=== PATIENT | female | born 1950 | race Caucasian/White ===

== ENCOUNTER 2021-09-12 10:55 | Inpatient (IN) | payer MEDICARE ==
[2021-09-12] MEDS ORDERED: Polyethylene Glycol 3350 Powder 17 GM Packet PO PRN (11:17)
[2021-09-12] MEDS ORDERED: Acetaminophen 325 MG Tab PO PRN (11:17)
[2021-09-12] MEDS ORDERED: oxyCODONE 5 MG Tab PO PRN (11:36)
[2021-09-12] MEDS: oxyCODONE 5 MG Tab PO PRN (15:05)
[2021-09-12] MEDS ORDERED: Bisacodyl 5 MG Tab PO PRN (16:09)
[2021-09-12] MEDS ORDERED: Calcium Carbonate 500 MG Tab.Chew PO PRN (16:09)
[2021-09-12] MEDS ORDERED: hydrOXYzine HCl 25 MG Tab PO PRN (16:09)
[2021-09-12] MEDS ORDERED: Ondansetron 4 MG/2 ML SDV IV PRN (16:09)
[2021-09-12] MEDS: Carvedilol 6.25 MG Tab PO SCH (17:50)
[2021-09-12] MEDS: metFORMIN 500 MG Tab PO SCH (17:51)
[2021-09-12] MEDS ORDERED: Non-Formulary Medication 1 Each (Ciclopirox [Penlac 8% Nail Lacquer] 6.6 ML Bottle) TOP SCH (21:00)
[2021-09-12] MEDS: Melatonin 3 MG Tab PO SCH (21:47)
[2021-09-13] MEDS: Carvedilol 6.25 MG Tab PO SCH ×2 (09:00→18:19)
[2021-09-13] MEDS ORDERED: Enoxaparin 30 MG/0.3 ML Syringe SUBCUT SCH (09:00)
[2021-09-13] MEDS: Torsemide 20 MG Tab PO SCH (09:03)
[2021-09-13] MEDS: metFORMIN 500 MG Tab PO SCH ×2 (09:04→18:19)
[2021-09-13] MEDS: Aspirin 81 MG Tab.EC PO SCH (09:04)
[2021-09-13] MEDS: glipiZIDE 5 MG Tab.ER PO SCH (09:04)
[2021-09-13] MEDS: Isosorbide Mononitrate 30 MG Tab.ER PO SCH (09:05)
[2021-09-13] MEDS: atorvaSTATin 10 MG Tab PO SCH (09:08)
[2021-09-13] MEDS: Spironolactone 25 MG Tab PO SCH (09:08)
[2021-09-13] MEDS: Enoxaparin 30 MG/0.3 ML Syringe SUBCUT SCH (09:08)
[2021-09-13] MEDS: oxyCODONE 5 MG Tab PO PRN ×3 (09:10→21:36)
[2021-09-13] MEDS ORDERED: Ondansetron 4 MG Tab.DIS PO PRN (10:34)
--- NOTE | 2021-09-13 10:36 | PCM.HP.2 ---
H&P History of Present Illness - General Date of Service: 09/13/21 Admit Problem/Dx: Admission Diagnosis/Problem Admission Diagnosis/Problem Weakness Right Hip Pain Score (Numeric/FACES): 6 Right Leg Pain Score (Numeric/FACES): 6 - Related Data Allergies/Adverse Reactions: Allergies Allergy/AdvReac Type Severity Reaction Status Date / Time No Known Allergies Allergy Verified 09/12/21 14:37 Home Medications: Home Meds Aspirin [Aspirin EC] 81 mg PO DAILY 09/12/21 [History] Calcium Carbonate [Tums] 1,000 mg PO ASDIRECTED PRN 09/12/21 [History] Ciclopirox [Penlac 8% Nail Lacquer] 1 applic TOP BID 09/12/21 [History] Clopidogrel [Plavix] 75 mg PO DAILY 09/12/21 [History] Enoxaparin Sodium [Lovenox] 30 mg SQ DAILY 09/12/21 [History] Ibuprofen [Motrin] 600 mg PO ASDIRECTED PRN 09/12/21 [History] Isosorbide Mononitrate [Isosorbide Mononitrate ER] 30 mg PO DAILY 09/12/21 [History] Melatonin 6 mg PO BEDTIME 09/12/21 [History] Ondansetron [Zofran] 4 mg IV Q4HR PRN 09/12/21 [History] Sennosides [Laxative] 25 mg PO BID PRN 09/12/21 [History] Sennosides/Docusate Sodium [Senna-S] 2 each PO BID PRN 09/12/21 [History] Spironolactone [Aldactone] 12.5 mg PO DAILY 09/12/21 [History] Torsemide 30 mg PO DAILY 09/12/21 [History] atorvaSTATin [Lipitor] 20 mg PO DAILY 09/12/21 [History] bisacodyL [Bisacodyl] 10 mg PO DAILY PRN 09/12/21 [History] carvediloL [Carvedilol] 9.375 mg PO BIDMEALS 09/12/21 [History] glipiZIDE [Glipizide ER] 20 mg PO DAILY 09/12/21 [History] hydrOXYzine pamoate [Hydroxyzine Pamoate] 25 mg PO Q6HR PRN 09/12/21 [History] metFORMIN [Glucophage] 1,000 mg PO BIDMEALS 09/12/21 [History] traMADol [Ultram] 50 mg PO Q6H PRN 09/12/21 [History] Past Medical History HEENT History: Reports: Cataract, Impaired Vision Cardiovascular History: Reports: Bypass, Heart Failure, Heart Murmur, High Cholesterol, Other (See Below) Other Cardiovascular History: EF 29% Respiratory History: Reports: None Gastrointestinal History: Reports: Chronic Constipation Genitourinary History: Reports: Chronic Renal Insuffiency Musculoskeletal History: Reports: Fracture, Other (See Below) Other Musculoskeletal History: right distal femur fracture Neurological History: Reports: None Endocrine/Metabolic History: Reports: Diabetes, Type II Hematologic History: Reports: Blood Transfusion(s) Dermatologic History: Reports: Eczema - Infectious Disease History Infectious Disease History: Reports: Chicken Pox, Influenza, Measles, Mumps, Rubella - Past Surgical History Head Surgeries/Procedures: Reports: None Cardiovascular Surgical History: Reports: Coronary Artery Bypass, Other (See Below) Other Cardiovascular Surgeries/Procedures: CABG x4 10/2020 Respiratory Surgical History: Reports: None GI Surgical History: Reports: None Endocrine Surgical History: Reports: None Neurological Surgical History: Reports: None Musculoskeletal Surgical History: Reports: ORIF Social & Family History - Family History Family Medical History: No Pertinent Family History - Tobacco Use Tobacco Use Status *Q: Former Tobacco User Used Tobacco, but Quit: Yes Month/Year Tobacco Last Used: 09/2020 - Caffeine Use Caffeine Use: Reports: Coffee, Soda, Tea - Recreational Drug Use Recreational Drug Use: No H&P Review of Systems - Review of Systems: Review Of Systems: See Below General: Reports: Weakness, Fatigue, Decreased Appetite. Denies: Fever, Chills HEENT: Reports: No Symptoms Pulmonary: Reports: Shortness of Breath (improved from prior). Denies: Wheezing, Cough Cardiovascular: Reports: Dyspnea on Exertion (improved from prior), Edema (improved from prior). Denies: Chest Pain Gastrointestinal: Reports: Decreased Appetite, Nausea. Denies: Abdominal Pain, Constipation, Diarrhea, Vomiting Genitourinary: Reports: No Symptoms Musculoskeletal: Reports: Leg Pain (right ) Skin: Reports: Bruising (scattered to upper extremities from lab draws and IVs during acute hospital stay), Wound (surgical incision to R distal femur s/p ORIF) Psychiatric: Reports: No Symptoms Neurological: Reports: No Symptoms Hematologic/Lymphatic: Reports: Anemia, Easy Bruising Immunologic: Reports: No Symptoms Exam - Exam Exam: See Below - Vital Signs Vital Signs: Last Vital Signs Temp 97.4 F 09/13/21 06:35 Pulse 68 09/13/21 09:00 Resp 20 09/13/21 06:35 BP 116/51 L 09/13/21 09:05 Pulse Ox 97 09/13/21 06:35 Weight: 143 lb 7 oz - Exam Quality Assessment: DVT Prophylaxis. No: Supplemental Oxygen General: Alert, Oriented, Cooperative. No: Mild Distress HEENT: Conjunctiva Clear, Mucosa Moist & [place] Neck: Supple, Trachea Midline, Carotid Bruit. No: +2 Carotid Pulse wo Bruit, JVD Lungs: Normal Respiratory Effort, Decreased Breath Sounds. No: Crackles, Rhonchi, Wheezing Cardiovascular: Regular Rate, Regular Rhythm, Systolic Murmur GI/Abdominal Exam: Normal Bowel Sounds, Soft, Non-Tender, No Distention (Female) Exam: Deferred Rectal (Female) Exam: Deferred Back Exam: Normal Inspection, Full Range of Motion Extremities: Normal Capillary Refill, Pedal Edema (+1 edema LLE, +2 RLE) Peripheral Pulses: 2+: Dorsalis Pedis (L), Dorsalis Pedis (R) Skin: Warm, Dry, Incision (R distal femur s/p ORIF; dressing clean, dry and intact) Neuro Extensive - Mental Status: Alert, Oriented x3, Normal Mood/Affect Psychiatric: Alert, Normal Affect, Normal Mood Sepsis Event Note - Evaluation Sepsis Screening Result: No Definite Risk - Focused Exam Vital Signs: Vital Signs Temp Pulse Pulse Resp BP BP Pulse Ox 09/13/21 09:05 116/51 L 09/13/21 09:00 68 116/51 L 09/13/21 06:35 97.4 F 66 20 119/59 L 97 Problem List Initiated/Reviewed/Updated: Yes Orders Last 24hrs: Active Orders 24 hr Category Date Time Status Patient Status [ADT] Routine ADT 09/12/21 11:17 Active Communication Order [RC] DAILY Care 09/12/21 13:21 Active Oxygen Therapy [RC] .PRN Care 09/12/21 11:17 Active Up With Assistance [RC] .PRN Care 09/12/21 11:17 Active VTE/DVT Education [RC] Tu@ Care 09/12/21 11:17 Active Vital Signs [RC] 07,19 Care 09/12/21 11:17 Active Consult to Case Management/Horse Race Starter [CONS] Cons 09/12/21 11:17 Active Routine OT Evaluation and Treatment [CONS] Routine Cons 09/12/21 11:17 Active PT Evaluation and Treatment [CONS] Routine Cons 09/12/21 11:17 Active Consistent Carbohydrate Diet [DIET] Diet 09/12/21 Dinner Active Heart Healthy Diet [DIET] Diet 09/12/21 Dinner Active Acetaminophen [TylenoL] Med 09/12/21 11:17 Active 650 mg PO Q4H PRN Aspirin [Halfprin] Med 09/13/21 09:00 Active 81 mg PO DAILY Calcium Carbonate [Tums] Med 09/12/21 16:09 Active 1,000 mg PO Q6H PRN Ciclopirox [Penlac 8% Nail Lacquer] Med 09/12/21 21:00 Pending 1 applic TOP BID Clopidogrel [Plavix] Med 09/14/21 09:00 Active 75 mg PO DAILY Docusate Sodium/Sennosides [Senna Plus] Med 09/12/21 16:09 Active 2 tab PO BID PRN Enoxaparin [Lovenox] Med 09/13/21 09:00 Active 30 mg SUBCUT DAILY Isosorbide Mononitrate [Imdur] Med 09/13/21 09:00 Active 30 mg PO DAILY Melatonin Med 09/12/21 21:00 Active 6 mg PO BEDTIME Ondansetron [Zofran ODT] Med 09/13/21 10:34 Ordered 4 mg PO Q6H PRN Spironolactone [Aldactone] Med 09/13/21 09:00 Active 12.5 mg PO DAILY Torsemide [Demadex] Med 09/13/21 09:00 Active 30 mg PO DAILY atorvaSTATin [Lipitor] Med 09/13/21 09:00 Active 20 mg PO DAILY bisacodyL [Dulcolax] Med 09/12/21 16:09 Active 10 mg PO DAILY PRN carvediloL [Coreg] Med 09/12/21 18:00 Active 9.375 mg PO BIDMEALS glipiZIDE [Glucotrol XL] Med 09/13/21 09:00 Active 20 mg PO DAILY hydrOXYzine HCL [Atarax] Med 09/12/21 16:09 Active 25 mg PO Q6H PRN metFORMIN [Glucophage] Med 09/12/21 18:00 Active 1,000 mg PO BIDMEALS oxyCODONE Med 09/12/21 11:36 Active 2.5 mg PO Q4H PRN oxyCODONE Med 09/12/21 11:40 Active 5 mg PO Q4H PRN polyethylene glycoL 3350 [MiraLAX] Med 09/12/21 11:17 Active 17 gm PO DAILY PRN Resuscitation Status Routine Resus Stat 09/12/21 11:17 Ordered Medication Orders Acetaminophen (Acetaminophen 325 Mg Tab) 650 mg PO Q4H PRN PRN Reason: Pain (Mild 1-3)/fever Aspirin (Aspirin 81 Mg Tab.Ec) 81 mg PO DAILY [facility] Last Admin: 09/13/21 09:04 Dose: 81 mg Documented by: DELMAR Atorvastatin Calcium (Atorvastatin 10 Mg Tab) 20 mg PO DAILY [facility] Last Admin: 09/13/21 09:08 Dose: 20 mg Documented by: DELMAR Bisacodyl (Bisacodyl 5 Mg Tab) 10 mg PO DAILY PRN PRN Reason: Constipation Calcium Carbonate/Glycine (Calcium Carbonate 500 Mg Tab.Chew) 1,000 mg PO Q6H PRN PRN Reason: Heartburn Carvedilol (Carvedilol 6.25 Mg Tab) 9.375 mg PO BIDMEALS [facility] Last Admin: 09/13/21 09:00 Dose: 9.375 mg Documented by: Admin: 09/12/21 17:50 Dose: 9.375 mg Documented by: RUDY Clopidogrel Bisulfate (Clopidogrel 75 Mg Tab) 75 mg PO DAILY [facility] Enoxaparin Sodium (Enoxaparin 30 Mg/0.3 Ml Syringe) 30 mg SUBCUT DAILY [facility] Stop: 10/05/21 09:01 Last Admin: 09/13/21 09:08 Dose: 30 mg Documented by: DELMAR Glipizide (Glipizide 5 Mg Tab.Er) 20 mg PO DAILY [facility] Last Admin: 09/13/21 09:04 Dose: 20 mg Documented by: DELMAR Hydroxyzine HCl (Hydroxyzine Hcl 25 Mg Tab) 25 mg PO Q6H PRN PRN Reason: Anxiety Isosorbide Mononitrate (Isosorbide Mononitrate 30 Mg Tab.Er) 30 mg PO DAILY [facility] Last Admin: 09/13/21 09:05 Dose: 30 mg Documented by: DELMAR Melatonin (Melatonin 3 Mg Tab) 6 mg PO BEDTIME [facility] Last Admin: 09/12/21 21:47 Dose: 6 mg Documented by: DYLON Metformin HCl (Metformin 500 Mg Tab) 1,000 mg PO BIDMEALS [facility] Last Admin: 09/13/21 09:04 Dose: 1,000 mg Documented by: Admin: 09/12/21 17:51 Dose: 1,000 mg Documented by: RUDY Non-Formulary Medication (Ciclopirox [Penlac 8% Nail Lacquer]) 1 applic TOP BID [facility] Oxycodone HCl (Oxycodone 5 Mg Tab) 2.5 mg PO Q4H PRN PRN Reason: Pain (moderate 4-6) Oxycodone HCl (Oxycodone 5 Mg Tab) 5 mg PO Q4H PRN PRN Reason: Pain (severe 7-10) Last Admin: 09/13/21 09:10 Dose: 5 mg Documented by: Admin: 09/12/21 15:05 Dose: 5 mg Documented by: IVAN Polyethylene Glycol (Polyethylene Glycol 3350 Powder 17 Gm Packet) 17 gm PO DAILY PRN PRN Reason: Constipation Senna/Docusate Sodium (Docusate Sodium/Sennosides 50-8.6 Mg Tab) 2 tab PO BID PRN PRN Reason: Constipation Spironolactone (Spironolactone 25 Mg Tab) 12.5 mg PO DAILY [facility] Last Admin: 09/13/21 09:08 Dose: 12.5 mg Documented by: DELMAR Torsemide (Torsemide 20 Mg Tab) 30 mg PO DAILY [facility] Last Admin: 09/13/21 09:03 Dose: 30 mg Documented by: DELMAR Assessment/Plan Comment:: HPI summary: Cha is a 71yF patient who experienced a fall on the snow covered ice on 09/03/21 at her home in [place], [place]. Patient presented to the ER at [facility] and was found to have a communited fracture of the right distal femur and subsequently transferred to [facility] in [place] for orthopedic consultation and surgical repair. Patient has PHM significant for HFrEF with EF of 29%, aortic stenosis, four vessel CABG in October,, type 2 DM, and CKD stage III. Acute Hospital course: Patient was then transferred to [facility] for orthopedic consultation and surgical repair of her femur fx. Cardiology was consulted during her acute hospital stay due to known HFrEF, aortic stenosis and recent CABG this past October. Medications were adjusted by cardiology to include: ASA 81mg PO daily, lipitor 20mg PO daily, coreg 9.375mg PO BID, Imdur SR 30mg PO daily, Torsemide 20mg PO daily, plavix 75mg PO daily. Repeat Echo indicated an EF of 40% and moderate to severe aortic stenosis. Patient had ORIF of the R distal femur s/p fall resulting in fx on 09/06/21. During acute hospitalization, patient developed hypotension as well as congestive hepatopathy due to IV fluids in the presence of HFrEF and aortic stenosis. Torsemide was held due to hypotension for a few days which is suspected to have contributed to patient's fluid overload. Patient subsequently developed pulmonary edema as well as increased peripheral edema of the bilateral lower extremities. Liver enzymes increased and BNP significantly above baseline. Patient's torsemide was restarted which resulted in diuresis and overall improvement in clinical status. Patient was hospitalized at [facility] from 09/03/21 to 09/12/21 and discharged to swing bed at [facility] for deconditioning, generalized weakness, s/p R distal femur fx with surgical repair for additional PT and OT. Labs day of discharge were as follows: WBC 4.8, Hgb 9.1, Plt 210. Glu 118, Na 133, K 3.6, BUN 50, Creatinine 1.60, GFR 32, Alk phos 392, AST 116, ALT 126, Bili total 2.7, Mg 1.9. BNP 6259. Swing bed course: 09/13/21: Patient seen this morning on rounds after admission to swing bed yesterday afternoon from [facility]. Patient reports her pain is improved from prior and she feels good being able to move around. She reports nausea today with relief from PO zofran. Breathing and lower extremity swelling improved from prior as patient was fluid overloaded during acute hospital stay which has since improved since diuretics were restarted. Appetite has been somewhat decreased, bowels are moving. Lung sounds clear, diminished. HR regular with harsh murmur noted. Carotid bruit present bilaterally. Patient due to have TAVR in near future. Bowel sounds present, abdomen soft, non-tender. Swing bed problems and plan: # Generalized weakness # Deconditioning # Closed fracture of R distal femur (09/03/21) # s/p ORIF R distal femur (09/06/21) - PT eval and tx - OT eval and tx - web services manager consult for discharge planning due to possible need for home health vs SNF upon discharge depending on progress with therapy - Partial weight bearing status RLE - Continue tylenol 1000mg PO TID PRN mild pain - Continue oxy IR 2.5mg PO Q4H PRN moderate pain - Continue oxy IR 5mg PO Q4H PRN severe pain - Continue lovenox 30mg subq for DVT ppx until 10/05/21 per ortho discharge instructions - Continue daily dressing changes and monitor for s/s of infection (staple removal to be addressed at follow-up visit on 09/21/21) - Senna + PO BID PRN constipation - Miralax 17g PO daily PRN constipation - Dulcolax suppository PRN constipation - Zofran 4mg ODT Q6H PRN nausea Chronic, stable conditions: # CAD - continue ASA 81mg PO daily, imdur 30mg PO daily # HFrEF - EF 29% - Continue coreg 9.375mg PO BID, continue increased dose of torsemide 30mg PO daily due to fluid overload in [place] - was on 20mg PO daily in [place]. BNP day of discharge 6259. # Moderate to severe aortic stenosis - patient to have TAVR in near future # CABG (10/2020) - four vessel - Continue plavix 75mg PO daily (restarted post-op day 6) # HTN - continue spironolactone 12.5mg PO daily # DM Type II - Last Hgb A1C on 06/13/21 was 6.5% - Continue glipizide 20mg PO daily, metformin 1000mg PO BID # CKD IIIa - BUN 50, Creatinine 1.60, GFR 32 prior to discharge 09/12/21 # Hyperlipidemia - continue atorvastatin 20mg PO HS daily # Anemia, acute on chronic; Hgb was stable upon discharge 9.1 (patient received 2 units PRBC during acute hospital stay) - consider iron studies as RDW 57% and PO iron supplementation # Hyperthyroidism - TSH < 0.01 on 07/17/21 # GERD - Continue Tums 1000mg PO Q6H PRN heartburn # Atopic dermatitis Hospitalization details: # FEN: Oral fluids, electrolytes WNL per labs upon discharge from acute hospital, heart healthy/constant carb diet # PPX: Patient on lovenox for four weeks post-op, on plavix 75mg PO daily s/p CABG # Code status: FULL CODE # Emergency contact: SisterTiffanie [phone] - left a voicemail for sister to contact provider for status update per patient request # Disposition: Patient admitted to swing bed status for strengthening with PT and OT services. web services manager consult is in place to assist with discharge disposition including home health services vs SNF depending on how patient progresses with therapy after her R distal femur fx. - Cardiology in [place] to determine how long to continue plavix s/p CABG in October, - Patient to follow-up with ortho [facility] in 2 weeks on 09/21/21 at 8:[address] Felton in 6 weeks on 10/19/21 at 10:00 - Patient has scheduled endocrinology appointment on 10/03/21 at 12:50 for hyperthyroidism follow-up
[2021-09-13] MEDS: Melatonin 3 MG Tab PO SCH (21:36)
[2021-09-14] MEDS: Torsemide 20 MG Tab PO SCH (08:21)
[2021-09-14] MEDS: Carvedilol 6.25 MG Tab PO SCH ×2 (08:22→18:03)
[2021-09-14] MEDS: Clopidogrel 75 MG Tab PO SCH (08:22)
[2021-09-14] MEDS: metFORMIN 500 MG Tab PO SCH ×2 (08:23→18:03)
[2021-09-14] MEDS: glipiZIDE 5 MG Tab.ER PO SCH (08:23)
[2021-09-14] MEDS: Enoxaparin 30 MG/0.3 ML Syringe SUBCUT SCH (08:23)
[2021-09-14] MEDS: atorvaSTATin 10 MG Tab PO SCH (08:23)
[2021-09-14] MEDS: Aspirin 81 MG Tab.EC PO SCH (08:23)
[2021-09-14] MEDS: Isosorbide Mononitrate 30 MG Tab.ER PO SCH (08:24)
[2021-09-14] MEDS: Spironolactone 25 MG Tab PO SCH (08:24)
[2021-09-14] MEDS: oxyCODONE 5 MG Tab PO PRN ×2 (08:48→14:19)
[2021-09-14] MEDS: Melatonin 3 MG Tab PO SCH (20:20)
[2021-09-15] MEDS: oxyCODONE 5 MG Tab PO PRN ×4 (04:21→21:48)
[2021-09-15] MEDS: Carvedilol 6.25 MG Tab PO SCH ×2 (08:45→17:36)
[2021-09-15] MEDS: Isosorbide Mononitrate 30 MG Tab.ER PO SCH (08:45)
[2021-09-15] MEDS: Torsemide 20 MG Tab PO SCH (08:45)
[2021-09-15] MEDS: Clopidogrel 75 MG Tab PO SCH (08:45)
[2021-09-15] MEDS: Aspirin 81 MG Tab.EC PO SCH (08:45)
[2021-09-15] MEDS: Enoxaparin 30 MG/0.3 ML Syringe SUBCUT SCH (08:45)
[2021-09-15] MEDS: Spironolactone 25 MG Tab PO SCH (08:45)
[2021-09-15] MEDS: atorvaSTATin 10 MG Tab PO SCH (08:45)
[2021-09-15] MEDS: metFORMIN 500 MG Tab PO SCH ×2 (08:46→17:36)
[2021-09-15] MEDS: glipiZIDE 5 MG Tab.ER PO SCH (08:46)
[2021-09-15] MEDS: Melatonin 3 MG Tab PO SCH (21:48)
[2021-09-16] MEDS: metFORMIN 500 MG Tab PO SCH ×2 (09:18→19:38)
[2021-09-16] MEDS: atorvaSTATin 10 MG Tab PO SCH (09:19)
[2021-09-16] MEDS: Torsemide 20 MG Tab PO SCH (09:19)
[2021-09-16] MEDS: Aspirin 81 MG Tab.EC PO SCH (09:19)
[2021-09-16] MEDS: Isosorbide Mononitrate 30 MG Tab.ER PO SCH (09:20)
[2021-09-16] MEDS: oxyCODONE 5 MG Tab PO PRN ×2 (09:20→14:47)
[2021-09-16] MEDS: Clopidogrel 75 MG Tab PO SCH (09:21)
[2021-09-16] MEDS: glipiZIDE 5 MG Tab.ER PO SCH (09:21)
[2021-09-16] MEDS: Carvedilol 6.25 MG Tab PO SCH ×2 (09:21→19:36)
[2021-09-16] MEDS: Spironolactone 25 MG Tab PO SCH (09:22)
[2021-09-16] MEDS: Enoxaparin 30 MG/0.3 ML Syringe SUBCUT SCH (09:25)
[2021-09-16] MEDS: Melatonin 3 MG Tab PO SCH (21:01)
[2021-09-17] MEDS: oxyCODONE 5 MG Tab PO PRN ×3 (08:18→20:58)
[2021-09-17] MEDS: Spironolactone 25 MG Tab PO SCH (08:19)
[2021-09-17] MEDS: glipiZIDE 5 MG Tab.ER PO SCH (08:19)
[2021-09-17] MEDS: metFORMIN 500 MG Tab PO SCH ×2 (08:20→17:49)
[2021-09-17] MEDS: atorvaSTATin 10 MG Tab PO SCH (08:20)
[2021-09-17] MEDS: Clopidogrel 75 MG Tab PO SCH (08:20)
[2021-09-17] MEDS: Carvedilol 6.25 MG Tab PO SCH ×2 (08:21→17:56)
[2021-09-17] MEDS: Isosorbide Mononitrate 30 MG Tab.ER PO SCH (08:21)
[2021-09-17] MEDS: Aspirin 81 MG Tab.EC PO SCH (08:22)
[2021-09-17] MEDS: Torsemide 20 MG Tab PO SCH (08:22)
[2021-09-17] MEDS: Enoxaparin 30 MG/0.3 ML Syringe SUBCUT SCH (08:22)
[2021-09-17] MEDS: Melatonin 3 MG Tab PO SCH (20:58)
[2021-09-18] MEDS: Spironolactone 25 MG Tab PO SCH (09:14)
[2021-09-18] MEDS: glipiZIDE 5 MG Tab.ER PO SCH (09:15)
[2021-09-18] MEDS: Carvedilol 6.25 MG Tab PO SCH ×2 (09:16→18:01)
[2021-09-18] MEDS: metFORMIN 500 MG Tab PO SCH ×2 (09:16→18:00)
[2021-09-18] MEDS: Torsemide 20 MG Tab PO SCH (09:17)
[2021-09-18] MEDS: Isosorbide Mononitrate 30 MG Tab.ER PO SCH (09:17)
[2021-09-18] MEDS: Aspirin 81 MG Tab.EC PO SCH (09:18)
[2021-09-18] MEDS: atorvaSTATin 10 MG Tab PO SCH (09:18)
[2021-09-18] MEDS: Clopidogrel 75 MG Tab PO SCH (09:18)
[2021-09-18] MEDS: Enoxaparin 30 MG/0.3 ML Syringe SUBCUT SCH (09:20)
[2021-09-18] MEDS: oxyCODONE 5 MG Tab PO PRN ×2 (10:21→15:17)
--- NOTE | 2021-09-18 10:50 | PCM.SN.2 ---
- Free Text/Narrative Note: S: Received notification that patient had fallen in room. Was asked to stop in and look at her. Patient reports no pain or injury. She states she landed on her buttocks. No LOC, light headed, or chest pain. Patient reports she hit her wrist but has no concerns and can move it without difficulty. Nursing reports that patient has upcoming appointment for staple removal and repeat xray of femur on 09/21/2021 in [place]. Patient reports she does not have anyone who can take her. O: Patient has full ROM of left wrist. A: Patient reports no injury and has no concerns. No concerns noted in visiting with her. Exam not indicated. P: Nursing will continue to monitory patient. Message sent to scheduling staff that provider who rounds on 09/21/2021 will see patient, remove kirstin if indicated and repeat x-ray.
[2021-09-18] MEDS: Melatonin 3 MG Tab PO SCH (20:36)
[2021-09-19] MEDS: oxyCODONE 5 MG Tab PO PRN ×4 (05:40→21:30)
[2021-09-19] MEDS: metFORMIN 500 MG Tab PO SCH ×2 (09:49→18:03)
[2021-09-19] MEDS: glipiZIDE 5 MG Tab.ER PO SCH (09:52)
[2021-09-19] MEDS: Aspirin 81 MG Tab.EC PO SCH (09:52)
[2021-09-19] MEDS: Isosorbide Mononitrate 30 MG Tab.ER PO SCH (09:53)
[2021-09-19] MEDS: Torsemide 20 MG Tab PO SCH (09:54)
[2021-09-19] MEDS: Clopidogrel 75 MG Tab PO SCH (09:54)
[2021-09-19] MEDS: Spironolactone 25 MG Tab PO SCH (09:55)
[2021-09-19] MEDS: Carvedilol 6.25 MG Tab PO SCH ×2 (09:56→18:02)
[2021-09-19] MEDS: atorvaSTATin 10 MG Tab PO SCH (09:57)
[2021-09-19] MEDS: Enoxaparin 30 MG/0.3 ML Syringe SUBCUT SCH (10:00)
[2021-09-19] MEDS: Melatonin 3 MG Tab PO SCH (21:29)
[2021-09-20] MEDS: metFORMIN 500 MG Tab PO SCH ×2 (08:19→17:38)
[2021-09-20] MEDS: Torsemide 20 MG Tab PO SCH (08:19)
[2021-09-20] MEDS: Spironolactone 25 MG Tab PO SCH (08:20)
[2021-09-20] MEDS: glipiZIDE 5 MG Tab.ER PO SCH (08:20)
[2021-09-20] MEDS: atorvaSTATin 10 MG Tab PO SCH (08:20)
[2021-09-20] MEDS: Aspirin 81 MG Tab.EC PO SCH (08:21)
[2021-09-20] MEDS: Enoxaparin 30 MG/0.3 ML Syringe SUBCUT SCH (08:21)
[2021-09-20] MEDS: Clopidogrel 75 MG Tab PO SCH (08:21)
[2021-09-20] MEDS: Carvedilol 6.25 MG Tab PO SCH ×2 (08:26→17:46)
[2021-09-20] MEDS: Isosorbide Mononitrate 30 MG Tab.ER PO SCH (08:27)
[2021-09-20] MEDS: oxyCODONE 5 MG Tab PO PRN ×3 (08:29→20:52)
[2021-09-20] MEDS: Melatonin 3 MG Tab PO SCH (20:52)
[2021-09-21] MEDS: glipiZIDE 5 MG Tab.ER PO SCH (08:21)
[2021-09-21] MEDS: atorvaSTATin 10 MG Tab PO SCH (08:22)
[2021-09-21] MEDS: Torsemide 20 MG Tab PO SCH (08:22)
[2021-09-21] MEDS: Aspirin 81 MG Tab.EC PO SCH (08:22)
[2021-09-21] MEDS: metFORMIN 500 MG Tab PO SCH ×2 (08:22→17:01)
[2021-09-21] MEDS: Spironolactone 25 MG Tab PO SCH (08:23)
[2021-09-21] MEDS: Clopidogrel 75 MG Tab PO SCH (08:23)
[2021-09-21] MEDS: Enoxaparin 30 MG/0.3 ML Syringe SUBCUT SCH (08:23)
[2021-09-21] MEDS: Carvedilol 6.25 MG Tab PO SCH ×2 (08:34→17:00)
[2021-09-21] MEDS: Isosorbide Mononitrate 30 MG Tab.ER PO SCH (08:34)
[2021-09-21] MEDS: oxyCODONE 5 MG Tab PO PRN ×2 (11:07→17:01)
[2021-09-21] MEDS: Melatonin 3 MG Tab PO SCH (21:48)
[2021-09-22] MEDS: Spironolactone 25 MG Tab PO SCH (08:43)
[2021-09-22] MEDS: Aspirin 81 MG Tab.EC PO SCH (08:43)
[2021-09-22] MEDS: Isosorbide Mononitrate 30 MG Tab.ER PO SCH (08:43)
[2021-09-22] MEDS: Clopidogrel 75 MG Tab PO SCH (08:44)
[2021-09-22] MEDS: atorvaSTATin 10 MG Tab PO SCH (08:44)
[2021-09-22] MEDS: Torsemide 20 MG Tab PO SCH (08:44)
[2021-09-22] MEDS: glipiZIDE 5 MG Tab.ER PO SCH (08:44)
[2021-09-22] MEDS: Carvedilol 6.25 MG Tab PO SCH ×2 (08:44→18:29)
[2021-09-22] MEDS: metFORMIN 500 MG Tab PO SCH ×2 (08:44→18:29)
[2021-09-22] MEDS: Enoxaparin 30 MG/0.3 ML Syringe SUBCUT SCH (08:46)
[2021-09-22] MEDS: oxyCODONE 5 MG Tab PO PRN (12:21)
[2021-09-22] MEDS ORDERED: oxyCODONE 5 MG Tab PO PRN (13:09)
[2021-09-22] MEDS: Acetaminophen 650 MG Tab.ER PO SCH ×2 (14:37→20:50)
[2021-09-22] MEDS: Melatonin 3 MG Tab PO SCH (20:50)
[2021-09-23] MEDS: Isosorbide Mononitrate 30 MG Tab.ER PO SCH (08:43)
[2021-09-23] MEDS: Enoxaparin 30 MG/0.3 ML Syringe SUBCUT SCH (08:43)
[2021-09-23] MEDS: Clopidogrel 75 MG Tab PO SCH (08:43)
[2021-09-23] MEDS: atorvaSTATin 10 MG Tab PO SCH (08:44)
[2021-09-23] MEDS: Acetaminophen 650 MG Tab.ER PO SCH ×3 (08:44→20:42)
[2021-09-23] MEDS: metFORMIN 500 MG Tab PO SCH ×2 (08:44→18:06)
[2021-09-23] MEDS: glipiZIDE 5 MG Tab.ER PO SCH (08:46)
[2021-09-23] MEDS: Spironolactone 25 MG Tab PO SCH (08:48)
[2021-09-23] MEDS: Carvedilol 6.25 MG Tab PO SCH ×2 (08:49→18:05)
[2021-09-23] MEDS: Torsemide 20 MG Tab PO SCH (08:49)
[2021-09-23] MEDS: Aspirin 81 MG Tab.EC PO SCH (08:49)
--- NOTE | 2021-09-23 11:44 | PCM.SN.2 ---
- Free Text/Narrative Note: Patient remains in swing bed status for rehab services with goal to return home independently with likely home health services. There have been noted staff concerns regarding patients motivation and willingness to participate in her care. Yesterday patient refused to reposition, sit in the chair, or ambulate in the halls in the morning. She continued to refuse getting up to ambulate throughout the day. Discussion had with patient today regarding goals and plan of care. Patient feels she is overall improving. She reports pain 5/10 which is worse with ambulation. Patients Medicare coverage will only pay through next week and then patient would become out of pocket payment per day for her continued care. Discussed with patient that it is important that she becomes more engaged in her daily cares and rehabilitation to ensure she is medically optimized to return home. She denies any concerns of anxiety. She does report feeling a little down but relates this is situational. She states she is "bored" but does not have any particular activities that may appease her. Nonetheless this may help motivate patient to get her optimized for discharge to home. Goals/plan discussed with patient today: - Patient started on scheduled Tylenol TID. Dose reduction on Oxycodone with eventual plan to discontinue oxycodone altogether. - Patient to be up in the chair for meals. - Patient to be ambulating in the bruner and around the room (with assistance) - Continue PT - Continue to evaluate readiness for discharge
[2021-09-23] MEDS: Melatonin 3 MG Tab PO SCH (20:42)
[2021-09-24] MEDS: glipiZIDE 5 MG Tab.ER PO SCH (08:22)
[2021-09-24] MEDS: Isosorbide Mononitrate 30 MG Tab.ER PO SCH (08:23)
[2021-09-24] MEDS: Clopidogrel 75 MG Tab PO SCH (08:23)
[2021-09-24] MEDS: Torsemide 20 MG Tab PO SCH (08:25)
[2021-09-24] MEDS: Aspirin 81 MG Tab.EC PO SCH (08:25)
[2021-09-24] MEDS: Carvedilol 6.25 MG Tab PO SCH ×2 (08:25→17:53)
[2021-09-24] MEDS: atorvaSTATin 10 MG Tab PO SCH (08:25)
[2021-09-24] MEDS: Spironolactone 25 MG Tab PO SCH (08:25)
[2021-09-24] MEDS: Acetaminophen 650 MG Tab.ER PO SCH ×3 (08:26→20:24)
[2021-09-24] MEDS: metFORMIN 500 MG Tab PO SCH ×2 (08:26→17:53)
[2021-09-24] MEDS: Enoxaparin 30 MG/0.3 ML Syringe SUBCUT SCH (08:26)
[2021-09-24] MEDS: Melatonin 3 MG Tab PO SCH (20:24)
[2021-09-25] MEDS: Carvedilol 6.25 MG Tab PO SCH ×2 (08:21→17:34)
[2021-09-25] MEDS: Acetaminophen 650 MG Tab.ER PO SCH ×3 (08:22→21:00)
[2021-09-25] MEDS: metFORMIN 500 MG Tab PO SCH ×2 (08:23→17:34)
[2021-09-25] MEDS: glipiZIDE 5 MG Tab.ER PO SCH (08:25)
[2021-09-25] MEDS: Aspirin 81 MG Tab.EC PO SCH (08:25)
[2021-09-25] MEDS: atorvaSTATin 10 MG Tab PO SCH (08:26)
[2021-09-25] MEDS: Isosorbide Mononitrate 30 MG Tab.ER PO SCH (08:27)
[2021-09-25] MEDS: Clopidogrel 75 MG Tab PO SCH (08:27)
[2021-09-25] MEDS: Spironolactone 25 MG Tab PO SCH (08:28)
[2021-09-25] MEDS: Torsemide 20 MG Tab PO SCH (08:28)
[2021-09-25] MEDS: Enoxaparin 30 MG/0.3 ML Syringe SUBCUT SCH (08:30)
[2021-09-25] MEDS: oxyCODONE 5 MG Tab PO PRN (10:27)
[2021-09-25] MEDS: Melatonin 3 MG Tab PO SCH (21:00)
[2021-09-26] MEDS: metFORMIN 500 MG Tab PO SCH ×2 (07:46→18:06)
[2021-09-26] MEDS: Carvedilol 6.25 MG Tab PO SCH ×2 (07:46→18:05)
[2021-09-26] MEDS: Clopidogrel 75 MG Tab PO SCH (09:53)
[2021-09-26] MEDS: atorvaSTATin 10 MG Tab PO SCH (09:53)
[2021-09-26] MEDS: Enoxaparin 30 MG/0.3 ML Syringe SUBCUT SCH (09:53)
[2021-09-26] MEDS: Acetaminophen 650 MG Tab.ER PO SCH ×3 (09:53→20:34)
[2021-09-26] MEDS: glipiZIDE 5 MG Tab.ER PO SCH (09:53)
[2021-09-26] MEDS: Spironolactone 25 MG Tab PO SCH (09:54)
[2021-09-26] MEDS: Aspirin 81 MG Tab.EC PO SCH (09:54)
[2021-09-26] MEDS: Torsemide 20 MG Tab PO SCH (09:55)
[2021-09-26] MEDS: Isosorbide Mononitrate 30 MG Tab.ER PO SCH (09:55)
--- NOTE | 2021-09-26 10:37 | PT ---
PATIENT NAME: SHERRELL WOODSON MEDICAL RECORD NUMBER: : [id number] DATE: 09/13/2021 ONSET DATE: Date of injury: 09/03/2021 DATE OF EVALUATION: 09/13/2021 DIAGNOSIS: Status post open reduction and internal fixation distal femur fracture, right lower extremity weakness. SUBJECTIVE: The patient sustained injury to her right femur after a slip and fall on the ice on the outside of her home in [place]. The patient presented to the ED in [place] at which time it was determined she had a comminuted fracture of the distal femur. The patient agreed to be transferred to [place] for surgical repair of the injury with communications specialist. Currently, the patient is in swing bed status with a goal of returning to home independently. She says she would be receptive to home health if it is deemed necessary. She tells me that she has 3 stairs to accommodate to get into and out of her home with everything else on 1 level otherwise. She has 1 handrail currently that is on the left when going upstairs. The patient currently rates her pain as a 9/10. OBJECTIVE: TREATMENT TIME: Time in 1500. Time out 1530. TREATMENT: Consisted of physical therapy initial evaluation, low complex, and 15 minutes of therapeutic exercises with exercises consisting of supine bed exercises of heel slides, quad sets, hamstring sets, short arc quads and ankle pumps x20 each. OBSERVATION: The patient is supine in bed. Her incision sites appear to be healing normally and free of infection. There is moderate amount of swelling within the surgical region. PAIN: The patient rates pain as a 9/10. PALPATION: The patient is exquisitely tender palpating the surgical site in its entirety. RANGE OF MOTION: Active range of motion of right knee is 12 to 45 degrees. Passive range of motion equals that of active range of motion with patient intolerance due to pain. Passive range of motion of the right hip does appear within functional limits grossly. MANUAL MUSCLE TEST: Grade 2/5 in right knee flexion and extension and grade 3/5 in all planes of the right hip. SPECIAL TESTS: Negative. NEUROLOGIC FINDINGS: Appear intact and normal grossly. ASSESSMENT: Impression: The patient will benefit from a 10 to 20 day swing bed stay to improve strength and functionality. The patient does tolerate treatment fairly well despite being in significant pain. GOALS: Please refer to plan of care. PLAN: The patient will be seen in swing bed status 5 days per week until goals are met for discharge to home with potential for the need of home health.
[2021-09-26] MEDS ORDERED: Ondansetron 4 MG/2 ML SDV IM PRN (11:53)
[2021-09-26] MEDS ORDERED: Loperamide 2 MG Cap PO PRN (11:54)
[2021-09-26] MEDS: oxyCODONE 5 MG Tab PO PRN (13:41)
[2021-09-26] MEDS: Melatonin 3 MG Tab PO SCH (20:34)
[2021-09-27] MEDS: Carvedilol 6.25 MG Tab PO SCH ×2 (07:54→17:05)
[2021-09-27] MEDS: metFORMIN 500 MG Tab PO SCH ×2 (07:54→17:05)
[2021-09-27] MEDS: Acetaminophen 650 MG Tab.ER PO SCH ×3 (08:04→20:39)
[2021-09-27] MEDS: Spironolactone 25 MG Tab PO SCH (08:05)
[2021-09-27] MEDS: glipiZIDE 5 MG Tab.ER PO SCH (08:05)
[2021-09-27] MEDS: Aspirin 81 MG Tab.EC PO SCH (08:05)
[2021-09-27] MEDS: Isosorbide Mononitrate 30 MG Tab.ER PO SCH (08:05)
[2021-09-27] MEDS: Torsemide 20 MG Tab PO SCH (08:05)
[2021-09-27] MEDS: Clopidogrel 75 MG Tab PO SCH (08:05)
[2021-09-27] MEDS: atorvaSTATin 10 MG Tab PO SCH (08:05)
[2021-09-27] MEDS: Enoxaparin 30 MG/0.3 ML Syringe SUBCUT SCH (08:06)
[2021-09-27] MEDS: Melatonin 3 MG Tab PO SCH (20:39)
[2021-09-28] MEDS: Acetaminophen 650 MG Tab.ER PO SCH ×2 (08:07→13:16)
[2021-09-28] MEDS: Clopidogrel 75 MG Tab PO SCH (08:07)
[2021-09-28] MEDS: metFORMIN 500 MG Tab PO SCH (08:07)
[2021-09-28] MEDS: Torsemide 20 MG Tab PO SCH (08:07)
[2021-09-28] MEDS: Carvedilol 6.25 MG Tab PO SCH (08:08)
[2021-09-28] MEDS: Spironolactone 25 MG Tab PO SCH (08:08)
[2021-09-28] MEDS: glipiZIDE 5 MG Tab.ER PO SCH (08:08)
[2021-09-28] MEDS: Isosorbide Mononitrate 30 MG Tab.ER PO SCH (08:09)
[2021-09-28] MEDS: Aspirin 81 MG Tab.EC PO SCH (08:09)
[2021-09-28] MEDS: Enoxaparin 30 MG/0.3 ML Syringe SUBCUT SCH (08:09)
[2021-09-28] MEDS: atorvaSTATin 10 MG Tab PO SCH (08:09)
[2021-09-28 10:02] LABS: ANION GAP 15.7 mmol/L (5-15)
--- NOTE | 2021-09-28 10:19 | CR ---
[id number] RAD/RAD Femur Right 2V EXAM: RAD Femur Right 2V CLINICAL DATA: FOLLOW-UP INTERNAL FIXATION OF RIGHT FEMORAL FRACTURE COMPARISON: No previous similar exam is available. FINDINGS: There is 7 mm diastases of distal right femoral diametaphyseal fracture fragments Correlation with previous imaging studies would be helpful IMPRESSION: INTERNAL FIXATION OF DISTAL RIGHT FEMORAL DIAMETAPHYSEAL FRACTURE WITH DIASTASES OF FRAGMENTS Jeff Hector MD 09/28/21 1018 Thank you for allowing us to participate in the care of your patient.
[2021-09-28] MEDS ORDERED: Magnesium Oxide 500 MG Tab PO SCH (10:30)
--- NOTE | 2021-09-28 10:34 | PCM.DCSUM1 ---
Discharge Summary - Hospital Course Free Text/Narrative:: Date of admission: 09/12/21 Date of discharge: 09/28/21 Admission diagnoses: # Generalized weakness # Deconditioning # Closed fracture of R distal femur (09/03/21) # s/p ORIF R distal femur (09/06/21) Discharge diagnoses: # CAD - continue ASA 81mg PO daily, imdur 30mg PO daily # HFrEF - EF 29% - Continue coreg 9.375mg PO BID, continue increased dose of torsemide 30mg PO daily due to fluid overload in [place] - was on 20mg PO daily in [place]. BNP day of discharge 1609. Repeated 09/28/21 = 3840 # Moderate to severe aortic stenosis - patient to have TAVR in near future - follow-up with cardiology in [place] # CABG (10/2020) - four vessel - Continue plavix 75mg PO daily (restarted post-op day 6) - duration of plavix to be determine by cardiology # HTN - continue spironolactone 12.5mg PO daily # DM Type II - Last Hgb A1C on 06/13/21 was 6.5% - Continue glipizide 20mg PO daily, metformin 1000mg PO BID # CKD IIIa - BUN 50, Creatinine 1.60, GFR 32 prior to discharge 09/12/21; repeated 09/28/21: BUN 27, Creatinine 0.98, GFR 56 # Hyperlipidemia - continue atorvastatin 20mg PO HS daily # Anemia, acute on chronic; Hgb was stable upon discharge 9.1 (patient received 2 units PRBC during acute hospital stay) - start Fe supplementation 09/29 # Hyperthyroidism - TSH < 0.01 on 07/17/21 # Generalized weakness - continue PT, OT with home health - prescription provided for front wheeled walker # Deconditioning - continue PT, OT with home health # s/p ORIF R distal femur (09/06/21) - continue tylenol 1000mg PO TID for pain. Discontinued oxy on discharge home. # GERD - Continue Tums 1000mg PO Q6H PRN heartburn # Atopic dermatitis HPI summary: Cha is a 71yF patient who experienced a fall on the snow covered ice on 09/03/21 at her home in [place], [place]. Patient presented to the ER at [facility] and was found to have a communited fracture of the right distal femur and subsequently transferred to [facility] in [place] for orthopedic consultation and surgical repair. Patient has PHM significant for HFrEF with EF of 29%, aortic stenosis, four vessel CABG in October,, type 2 DM, and CKD stage III. Acute Hospital course: Patient was then transferred to [facility] for orthopedic consultation and surgical repair of her femur fx. Cardiology was consulted during her acute hospital stay due to known HFrEF, aortic stenosis and recent CABG this past October. Medications were adjusted by cardiology to include: ASA 81mg PO daily, lipitor 20mg PO daily, coreg 9.375mg PO BID, Imdur SR 30mg PO daily, Torsemide 20mg PO daily, plavix 75mg PO daily. Repeat Echo indicated an EF of 40% and moderate to severe aortic stenosis. Patient had ORIF of the R distal femur s/p fall resulting in fx on 09/06/21. During acute hospitalization, patient developed hypotension as well as congestive hepatopathy due to IV fluids in the presence of HFrEF and aortic stenosis. Torsemide was held due to hypotension for a few days which is suspected to have contributed to patient's fluid overload. Patient subsequently developed pulmonary edema as well as increased peripheral edema of the bilateral lower extremities. Liver enzymes increased and BNP significantly above baseline. Patient's torsemide was restarted which resulted in diuresis and overall improvement in clinical status. Patient was hospitalized at [facility] from 09/03/21 to 09/12/21 and discharged to swing bed at [facility] for deconditioning, generalized weakness, s/p R distal femur fx with surgical repair for additional PT and OT. Labs day of discharge were as follows: WBC 4.8, Hgb 9.1, Plt 210. Glu 118, Na 133, K 3.6, BUN 50, Creatinine 1.60, GFR 32, Alk phos 392, AST 116, ALT 126, Bili total 2.7, Mg 1.9. BNP 6259. Swing bed course: 09/13/21: Patient seen this morning on rounds after admission to swing bed yesterday afternoon from [facility]. Patient reports her pain is improved from prior and she feels good being able to move around. She reports nausea today with relief from PO zofran. Breathing and lower extremity swelling improved from prior as patient was fluid overloaded during acute hospital stay which has since improved since diuretics were restarted. Appetite has been somewhat decreased, bowels are moving. Lung sounds clear, diminished. HR regular with harsh murmur noted. Carotid bruit present bilaterally. Patient due to have TAVR in near future. Bowel sounds present, abdomen soft, non-tender. 09/28/21: Patient reports she is getting stronger over time. Pain tolerable at 5/10 with tylenol. No oxycodone has been given for the past few days. Will discontinue narcotic at discharge. No diarrhea since 09/26/21. No c/o nausea. SOB at baseline given CHF. Lung sounds clear, HR regular rate and rhythm with murmur. R distal femur incision healing well, kirstin have been removed. Edema noted to BLE 1-2+. Repeated labs prior to discharge home today: WBC 4.59, Hgb 9.2, Plt 252. Na 140, K 4.3, BUN 27, Creatinine 0.98, GFR 56, Alk phos 322 (392 in [place]), Mg 1.6, BNP 3840 (6259 on 09/12 in [place]). Patient started on magnesium oxide 500mg PO daily today prior to discharge and recommend starting Ferrous sulfate 325mg PO three times weekly on M, W, F starting tomorrow. Patient to continue lovenox 30mg subq daily until 10/05 per orthopedics discharge instructions. Discharge and follow-up recommendations: - Discharge to home with [facility] for nursing, PT, OT services. - Medication changes at discharge: Continue lovenox 30mg subq daily until 10/05/21; Ferrous sulfate 325mg PO on ,W,F and Magnesium oxide 500mg PO daily - Follow-up with Marguerite Bain PA-C on 10/10/21 at 3:00 in [place] - Cardiology in [place] to determine how long to continue plavix s/p CABG in October, - due for follow-up with cardiology in early September - Patient to follow-up with orthopedics - Dr Felton in 6 weeks on 10/19/21 at 10:00 in [place] - Patient has scheduled endocrinology appointment on 10/03/21 at 12:50 for hyperthyroidism follow-up This is the order & Face to Face encounter for home health services to include: 1) Nursing, PT and OT services 2) Patient has clinical findings to support the need for home health services including: - Potential for re-hospitalization related to CHF, recent R distal femur f racture, weakness - Health teaching for medication management - Development of an in home therapy program - Diabetes management and education - Pain and symptom management - In home safety assessment and instruction - Strength and endurance - Home management of multiple disease processes including diabetes, CHF 3) Patient's condition necessitates home bound status due to: - Decreased strength and endurance due to muscle weakness and pain after R femur fracture - Shortness of breath related to CHF with minimal activity - Unsteady gait and use of assistive device for ambulation with walker - Chair bound status - Discharge Data Discharge Date: 09/28/21 Discharge Disposition: Home, W Home Health Agency 06 Condition: Good - Referral to Home Health Date of Face to Face Encounter: 09/28/21 ([facility]) Reason for Homebound Status: This is the order & Face to Face encounter for home health services to include: 1) Nursing, PT and OT services. 2) Patient has clinical findings to support the need for home health services including: - Potential for re-hospitalization related to CHF, recent R distal femur fracture, weakness. - Health teaching for medication management. - Development of an in home therapy program. - Diabetes management and education. - Pain and symptom management. - In home safety assessment and instruction. - Strength and endurance. - Home management of multiple disease processes including diabetes, CHF. 3) Patient's condition necessitates home bound status due to: - Decreased strength and endurance due to muscle weakness and pain after R femur fracture. - Shortness of breath related to CHF with minimal activity. - Unsteady gait and use of assistive device for ambulation with walker. - Chair bound status Primary Care Physician: Marguerite Bain PA-C Skilled Need: This is the order & Face to Face encounter for home health services to include: 1) Nursing, PT and OT services. 2) Patient has clinical findings to support the need for home health services including: - Potential for re-hospitalization related to CHF, recent R distal femur fracture, weakness. - Health teaching for medication management. - Development of an in home therapy program. - Diabetes management and education. - Pain and symptom management. - In home safety assessment and instruction. - Strength and endurance. - Home management of multiple disease processes including diabetes, CHF - Patient Summary/Data Consults: Consultations 09/12/21 11:17 Consult to Case Management/Carpenter Supervisor [CONS] Routine OT Evaluation and Treatment [CONS] Routine PT Evaluation and Treatment [CONS] Routine - Patient Instructions Diet: Heart Healthy Diet Activity: As Tolerated, Partial Weight Bearing (Right lower extremity) Driving: Do Not Drive Showering/Bathing: May Shower - Discharge Plan *PRESCRIPTION DRUG MONITORING PROGRAM REVIEWED*: Not Applicable *COPY OF PRESCRIPTION DRUG MONITORING REPORT IN PATIENT HANS: Not Applicable Home Medications: Home Meds Aspirin [Aspirin EC] 81 mg PO DAILY 09/12/21 [History] Calcium Carbonate [Tums] 1,000 mg PO ASDIRECTED PRN 09/12/21 [History] Ciclopirox [[place]lac 8% Nail Lacquer] 1 applic TOP BID 09/12/21 [History] Clopidogrel [Plavix] 75 mg PO DAILY 09/12/21 [History] Enoxaparin Sodium [Lovenox] 30 mg SQ DAILY 09/12/21 [History] Isosorbide Mononitrate [Isosorbide Mononitrate ER] 30 mg PO DAILY 09/12/21 [History] Melatonin 6 mg PO BEDTIME 09/12/21 [History] Sennosides/Docusate Sodium [Senna-S] 2 each PO BID PRN 09/12/21 [History] Spironolactone [Aldactone] 12.5 mg PO DAILY 09/12/21 [History] Torsemide 30 mg PO DAILY 09/12/21 [History] atorvaSTATin [Lipitor] 20 mg PO DAILY 09/12/21 [History] bisacodyL [Bisacodyl] 10 mg PO DAILY PRN 09/12/21 [History] carvediloL [Carvedilol] 9.375 mg PO BIDMEALS 09/12/21 [History] glipiZIDE [Glipizide ER] 20 mg PO DAILY 09/12/21 [History] metFORMIN [Glucophage] 1,000 mg PO BIDMEALS 09/12/21 [History] Acetaminophen [Tylenol Arthritis Pain] 1,300 mg PO TID tab.er 09/28/21 [Rx] Ferrous Sulfate 325 mg PO WITHBREAKFAST tablet 09/28/21 [Rx] Magnesium Oxide 500 mg PO DAILY tablet 09/28/21 [Rx] Oxygen Therapy Mode: Room Air Referrals: Hack,Marguerite, PA-C [Primary Care Provider] - 10/10/21 3:00 pm (- Follow-up with Marguerite Bain PA-C on 10/10/21 at 3:00 at [facility]. - Follow-up with cardiology in [place] as soon as scheduling allows - Endocrinology follow-up for hyperthyroidism scheduled 10/03/21 at 12:50 - Orthopedics follow-up scheduled on 10/19/21 at 10:00) - Discharge Summary/Plan Comment DC Time >30 min.: Yes Total # of Minutes for Discharge Time: 45 - General Info Date of Service: 09/28/21 Functional Status: Reports: Pain Controlled, Tolerating Diet, Ambulating (with front wheeled walker), Urinating, Incentive Spirometry (1250ml). Denies: New Symptoms - Review of Systems General: Reports: Weakness, Fatigue. Denies: Fever, Chills HEENT: Denies: No Symptoms Pulmonary: Reports: Shortness of Breath (with ambulation, at baseline). Denies: Cough, Wheezing Cardiovascular: Reports: Dyspnea on Exertion, Orthopnea, Edema (to bilateral lower legs). Denies: Chest Pain, Palpitations Gastrointestinal: Reports: Diarrhea (earlier this week, now resolved). Denies: Abdominal Pain, Constipation, Nausea Genitourinary: Reports: No Symptoms Musculoskeletal: Reports: Leg Pain (R leg pain, tolerable 5/10) Skin: Reports: Dryness Neurological: Reports: Weakness Psychiatric: Reports: Depression (situational). Denies: Anxiety - Patient Data Vitals - Most Recent: Last Vital Signs Temp 97.5 F 09/28/21 07:53 Pulse 73 09/28/21 08:08 Resp 18 09/28/21 07:53 BP 136/67 09/28/21 08:09 Pulse Ox 95 09/28/21 07:53 Weight - Most Recent: 141 lb 5 oz I&O - Last 24 hours: Intake & Output 09/27/21 09/28/21 09/28/21 22:59 06:59 14:59 Intake Total 350 150 Balance 350 150 Lab Results - Last 24 hrs: Laboratory Results - last 24 hr 09/28/21 09/28/21 Range/Units 09:35 09:35 WBC 4.59 L (5.00-10.00) 10^3/uL RBC 3.36 L (3.80-5.50) 10^6/uL Hgb 9.2 L (12.0-16.0) g/dL Hct 30.8 L (37.0-47.0) % MCV 91.7 (82.0-92.0) fL MCH 27.4 (27.0-31.0) pg MCHC 29.9 L (32.0-36.0) g/dL RDW 17.4 H (11.5-14.5) % Plt Count 252 (150-400) 10^3/uL MPV 9.8 (7.4-10.4) fL Immature Gran % (Auto) 0.2 (0.0-5.0) % Neut % (Auto) 85.2 H (50.0-70.0) % Lymph % (Auto) 7.0 L (20.0-40.0) % [place] % (Auto) 6.3 (2.0-8.0) % Eos % (Auto) 0.9 L (1.0-3.0) % Baso % (Auto) 0.4 (0.0-1.0) % Neut # (Auto) 3.91 (2.50-7.00) 10^3/uL Lymph # (Auto) 0.32 L (1.00-4.00) 10^3/uL [place] # (Auto) 0.29 (0.10-0.80) 10^3/uL Eos # (Auto) 0.04 L (0.10-0.30) 10^3/uL Baso # (Auto) 0.02 (0.00-0.10) 10^3/uL Immature Gran # (Auto) 0.01 (0.00-0.50) 10^3/uL Sodium 140 (136-145) mmol/L Potassium 4.3 (3.5-5.1) mmol/L Chloride 103 (98-107) mmol/L Carbon Dioxide 25.6 (21.0-32.0) mmol/L Anion Gap 15.7 H (5-15) mmol/L BUN 27 H (7-18) mg/dL Creatinine 0.98 (0.51-1.17) mg/dL Est Cr Clr Drug Dosing 42.25 mL/min Estimated GFR (MDRD) 56 mL/min Glucose 129 (70-140) mg/dL Calcium 8.7 (8.7-10.3) mg/dL Magnesium 1.6 L (1.8-2.4) mg/dL Total Bilirubin 1.0 (0.2-1.0) mg/dL AST 12 L (15-37) U/L ALT 14 (14-63) U/L Alkaline Phosphatase 322 H (46-116) U/L B-Natriuretic Peptide 3840 H (0-100) pg/mL Total Protein 6.9 (6.4-8.2) g/dL Albumin 2.86 L (3.40-5.00) g/dL Med Orders - Current: Current Medications Acetaminophen (Acetaminophen 650 Mg Tab.Er) 1,300 mg PO TID [facility] Last Admin: 09/28/21 08:07 Dose: 1,300 mg Documented by: Aspirin (Aspirin 81 Mg Tab.Ec) 81 mg PO DAILY [facility] Last Admin: 09/28/21 08:09 Dose: 81 mg Documented by: Atorvastatin Calcium (Atorvastatin 10 Mg Tab) 20 mg PO DAILY [facility] Last Admin: 09/28/21 08:09 Dose: 20 mg Documented by: Bisacodyl (Bisacodyl 5 Mg Tab) 10 mg PO DAILY PRN PRN Reason: Constipation Calcium Carbonate/Glycine (Calcium Carbonate 500 Mg Tab.Chew) 1,000 mg PO Q6H PRN PRN Reason: Heartburn Last Admin: 09/21/21 20:55 Dose: 1,000 mg Documented by: Carvedilol (Carvedilol 6.25 Mg Tab) 9.375 mg PO BIDMEALS [facility] Last Admin: 09/28/21 08:08 Dose: 9.375 mg Documented by: Clopidogrel Bisulfate (Clopidogrel 75 Mg Tab) 75 mg PO DAILY [facility] Last Admin: 09/28/21 08:07 Dose: 75 mg Documented by: Enoxaparin Sodium (Enoxaparin 30 Mg/0.3 Ml Syringe) 30 mg SUBCUT DAILY [facility] Stop: 10/05/21 09:01 Last Admin: 09/28/21 08:09 Dose: 30 mg Documented by: Ferrous Sulfate (Ferrous Sulfate 325 Mg Tab) 325 mg PO WITHBREAKFAST [facility] Glipizide (Glipizide 5 Mg Tab.Er) 20 mg PO DAILY [facility] Last Admin: 09/28/21 08:08 Dose: 20 mg Documented by: Hydroxyzine HCl (Hydroxyzine Hcl 25 Mg Tab) 25 mg PO Q6H PRN PRN Reason: Anxiety Last Admin: 09/17/21 20:59 Dose: 25 mg Documented by: Isosorbide Mononitrate (Isosorbide Mononitrate 30 Mg Tab.Er) 30 mg PO DAILY [facility] Last Admin: 09/28/21 08:09 Dose: 30 mg Documented by: Loperamide HCl (Loperamide 2 Mg Cap) 2 mg PO Q4H PRN PRN Reason: Diarrhea Last Admin: 09/26/21 12:30 Dose: 2 mg Documented by: Magnesium Oxide (Magnesium Oxide 500 Mg Tab) 500 mg PO DAILY [facility] Melatonin (Melatonin 3 Mg Tab) 6 mg PO BEDTIME [facility] Last Admin: 09/27/21 20:39 Dose: 6 mg Documented by: Metformin HCl (Metformin 500 Mg Tab) 1,000 mg PO BIDMEALS [facility] Last Admin: 09/28/21 08:07 Dose: 1,000 mg Documented by: Ondansetron HCl (Ondansetron 4 Mg Tab.Dis) 4 mg PO Q6H PRN PRN Reason: Nausea/Vomiting Last Admin: 09/13/21 10:42 Dose: 4 mg Documented by: Ondansetron HCl (Ondansetron 4 Mg/2 Ml Sdv) 4 mg IM Q4H PRN PRN Reason: Nausea/Vomiting Last Admin: 09/26/21 12:30 Dose: 4 mg Documented by: Oxycodone HCl (Oxycodone 5 Mg Tab) 5 mg PO Q6H PRN PRN Reason: Pain (severe 7-10) Last Admin: 09/26/21 13:41 Dose: 5 mg Documented by: Oxycodone HCl (Oxycodone 5 Mg Tab) 2.5 mg PO Q6H PRN PRN Reason: Pain (moderate 4-6) Polyethylene Glycol (Polyethylene Glycol 3350 Powder 17 Gm Packet) 17 gm PO DAILY PRN PRN Reason: Constipation Last Admin: 09/15/21 08:52 Dose: 17 gm Documented by: Senna/Docusate Sodium (Docusate Sodium/Sennosides 50-8.6 Mg Tab) 2 tab PO BID PRN PRN Reason: Constipation Last Admin: 09/22/21 08:52 Dose: 2 tab Documented by: Spironolactone (Spironolactone 25 Mg Tab) 12.5 mg PO DAILY [facility] Last Admin: 09/28/21 08:08 Dose: 12.5 mg Documented by: Torsemide (Torsemide 20 Mg Tab) 30 mg PO DAILY [facility] Last Admin: 09/28/21 08:07 Dose: 30 mg Documented by: Discontinued Medications Acetaminophen (Acetaminophen 325 Mg Tab) 650 mg PO Q4H PRN PRN Reason: Pain (Mild 1-3)/fever Last Admin: 09/17/21 16:16 Dose: 650 mg Documented by: Enoxaparin Sodium (Enoxaparin 30 Mg/0.3 Ml Syringe) 30 mg SUBCUT DAILY [facility] Ondansetron HCl (Ondansetron 4 Mg/2 Ml Sdv) 4 mg IV Q4H PRN PRN Reason: Nausea Oxycodone HCl (Oxycodone 5 Mg Tab) 2.5 mg PO Q4H PRN PRN Reason: Pain (moderate 4-6) Oxycodone HCl (Oxycodone 5 Mg Tab) 5 mg PO Q4H PRN PRN Reason: Pain (severe 7-10) Last Admin: 09/22/21 12:21 Dose: 5 mg Documented by: Senna/Docusate Sodium (Docusate Sodium/Sennosides 50-8.6 Mg Tab) 1 tab PO BID PRN PRN Reason: Constipation - Exam Quality Assessment: Reports: DVT Prophylaxis (lovenox). Denies: Supplemental Oxygen General: Reports: Alert, Oriented, Cooperative, No Acute Distress HEENT: Reports: Pupils Equal, Mucous Membr. Moist/[place] Neck: Reports: Supple, Trachea Midline Lungs: Reports: Clear to Auscultation, Normal Respiratory Effort. Denies: Crackles, Rhonchi, Wheezing Cardiovascular: Reports: Regular Rate, Regular Rhythm, Murmurs GI/Abdominal Exam: Normal Bowel Sounds, Soft, Non-Tender, No Distention (Female) Exam: Deferred Rectal (Female) Exam: Deferred Back Exam: Reports: Normal Inspection, Full Range of Motion Extremities: Normal Inspection, Normal Capillary Refill, Pedal Edema (+1 to +2 bilaterally). No: Increased Warmth, Redness Skin: Reports: Warm, Dry, Intact Wound/Incisions: Reports: Healing Well Neurological: Reports: No New Focal Deficit Psy/Mental Status: Reports: Alert, Normal Affect, Normal Mood
[2021-09-29] MEDS ORDERED: Ferrous Sulfate 325 MG Tab PO SCH (08:00)
== END 2021-09-28 14:45 | disposition home health service (06) | DRG 948 ==
LOC: KA.MS 14:24
PROVIDERS: ADMIT Student in an Organized Health Care Education/Training Program; ATTEND Student in an Organized Health Care Education/Training Program
DX: R53.81 Other malaise (principal); I50.22 Chronic systolic (congestive) heart failure; I13.0 Hypertensive heart and chronic kidney disease with heart failure and stage 1 through stage 4 chronic kidney disease, or unspecified chronic kidney disease; I25.10 Atherosclerotic heart disease of native coronary artery without angina pectoris; I35.0 Nonrheumatic aortic (valve) stenosis; N18.31 Chronic kidney disease, stage 3a; E11.22 Type 2 diabetes mellitus with diabetic chronic kidney disease; E78.5 Hyperlipidemia, unspecified; Z20.822 Contact with and (suspected) exposure to COVID-19; D63.1 Anemia in chronic kidney disease; E05.90 Thyrotoxicosis, unspecified without thyrotoxic crisis or storm; K21.9 Gastro-esophageal reflux disease without esophagitis; L20.9 Atopic dermatitis, unspecified; K59.09 Other constipation; E78.00 Pure hypercholesterolemia, unspecified; Z95.1 Presence of aortocoronary bypass graft; S72.401D Unspecified fracture of lower end of right femur, subsequent encounter for closed fracture with routine healing; Z79.82 Long term (current) use of aspirin; Z79.899 Other long term (current) drug therapy; Z79.84 Long term (current) use of oral hypoglycemic drugs; Z87.891 Personal history of nicotine dependence
CPT/HCPCS: 36415; 80053; 83735; 83880; 85025; 97110-GO; 97110-GP; 97161-GP; 97535-GO; A9270-GY; J1650; J2405; U0002